=== PATIENT | male | born 1995 ===

== ENCOUNTER 2021-01-12 16:49 | Emergency (ER) | payer SELFPAY ==
[~2021-01-12] VITALS: Ht 190.5 cm; Wt 77.1 kg
[2021-01-12 16:49] VITALS: BP 112/55
== END 2021-01-12 20:58 | disposition home or self-care (01) ==
LOC: ER 16:49 → EDBD 16:49 → ER 20:37
DX: J02.9 Acute pharyngitis, unspecified (principal); R11.2 Nausea with vomiting, unspecified; Z20.822 Contact with and (suspected) exposure to COVID-19; Z88.6 Allergy status to analgesic agent
CPT/HCPCS: 36415; 71045; 87426